=== PATIENT | female | born 1930 | race Caucasian/White ===

== ENCOUNTER 2019-02-11 09:06 | Inpatient (IN) | payer MEDICARE, OTHER ==
[~2019-02-11] VITALS: Ht 167.6 cm; Wt 61.8 kg
[2019-02-11] MEDS ORDERED: ASPI81TA85 PO (09:18)
[2019-02-11] MEDS ORDERED: NS 500 ML IV ONE (09:45)
[2019-02-11] MEDS ORDERED: ACETAMINOPHEN 325 MG TAB PO ONE (09:45)
[2019-02-11] MEDS ORDERED: LIDOCAINE 2% 5ML JELLY UROJET TOP ONE (09:45)
[2019-02-11 10:02] LABS: BASO # 0.1 10^3/uL (0.0-0.2); BASO % 0.4 % (0.0-1.0); EOS # 0.1 10^3/uL (0.0-0.50); EOS % 0.6 % (0.0-3.0); HEMATOCRIT 37.8 % (36.0-47.0); HEMOGLOBIN 12.7 g/dl (12.0-15.5); LYMPH # 0.5 10^3/uL (1.5-4.5); LYMPH % 3.7 % (24.0-44.0); MEAN CORPUSCULAR HEMOGLOBIN 31.1 pg (27.0-33.0); MEAN CORPUSCULAR HGB CONC 33.6 g/dl (32.0-36.5); MEAN CORPUSCULAR VOLUME 92.6 fl (80.0-96.0); MONO # 0.4 10^3/uL (0.0-0.8); MONO % 3.2 % (0.0-5.0); NEUTROPHILS # 11.5 10^3/uL (1.8-7.7); NEUTROPHILS % 91.5 % (36.0-66.0); PLATELET COUNT, AUTOMATED 217 10^3/uL (150-450); RED BLOOD COUNT 4.08 10^6/uL (4.00-5.40); WHITE BLOOD COUNT 12.6 10^3/uL (4.0-10.0)
--- NOTE | 2019-02-11 10:24 | REP ---
CHEST, TWO VIEWS: Two views of the chest is performed. There are no prior studies. There is no acute infiltrate. The heart is normal in size. There is mild calcification of the thoracic aorta. The mediastinal silhouette is unremarkable. There are mild degenerative changes of the spine. IMPRESSION: No acute infiltrate. Electronically Signed by Viet Mazariegos MD 02/12/2019 11:52 A
[2019-02-11 10:43] LABS: ALBUMIN 3.8 GM/DL (3.2-5.2); ALT/SGPT 23 U/L (12-78); BILIRUBIN,DIRECT 0.1 MG/DL (0.0-0.2); BILIRUBIN,TOTAL 0.5 MG/DL (0.2-1.0); BLOOD UREA NITROGEN 20 MG/DL (7-18); CALCIUM LEVEL 9.8 MG/DL (8.8-10.2); CARBON DIOXIDE LEVEL 25 MEQ/L (21-32); CHLORIDE LEVEL 104 MEQ/L (98-107); CREATININE FOR GFR 0.69 MG/DL (0.55-1.30); GLOMERULAR FILTRATION RATE > 60.0 (>32); GLUCOSE, FASTING 164 MG/DL (70-100); POTASSIUM SERUM 4.3 MEQ/L (3.5-5.1); SODIUM LEVEL 139 MEQ/L (136-145); TOTAL PROTEIN 7.4 GM/DL (6.4-8.2)
[2019-02-11 10:53] LABS: INFLUENZA A AMPLIFICATION NEGATIVE (NEGATIVE); INFLUENZA B AMPLIFICATION NEGATIVE (NEGATIVE)
[2019-02-11] MEDS ORDERED: NS 800 ML IV ONE (11:00)
[2019-02-11] MEDS ORDERED: PIPERACILLIN/TAZOBACTAM SOD 4.5 GM in D5W MINI-BAG PLUS 50 ML IV ONE (11:00)
[2019-02-11] MEDS ORDERED: VITMTA PO (11:05)
--- NOTE | 2019-02-11 12:01 | REP ---
CT ABDOMEN AND PELVIS WITHOUT CONTRAST: CT abdomen and pelvis performed without oral or IV contrast. Sagittal and coronal reconstruction images are performed. There are no prior studies for comparison. There are two subcentimeter nodular opacities in the left lower lobe measuring 4 and 6 mm in diameter. Otherwise, the visualized lung bases demonstrate interstitial fibrotic changes. The liver, spleen, adrenals, pancreas and kidneys are grossly unremarkable. No renal or ureteral calculus is seen and there is no evidence of bladder calculus. There is no hydroureteronephrosis. There is moderate atherosclerotic calcification of the abdominal aorta without aneurysm. There is no adenopathy. There is no free air or free fluid. No bowel thickening is seen. I seen no pelvic mass. There are degenerative changes of the spine. There are findings in the left pelvic bones and proximal left femur most consistent with Paget's disease with cortical thickening and coarsening of the trabecular pattern. This also appears to involve the L4 vertebral body. IMPRESSION: No acute abnormality is detected. No renal or ureteral calculus and no hydroureteronephrosis. There are findings compatible with Paget's disease of left pelvic bones, proximal left femur and the L4 vertebral body. Two subcentimeter nodular opacities in the visualized left lung base are of uncertain significance. Recommend CT of the chest to evaluate for other pulmonary nodules. Electronically Signed by Viet Mazariegos MD 02/12/2019 11:56 A
--- NOTE | 2019-02-11 12:12 | HPEPDOC ---
[facility] Medical History & Physical Date of Admission Feb 11, 2019 Date of Service: Feb 11, 2019 Primary Care Physician: A History and Physical CHIEF COMPLAINT: rigors, chills HISTORY OF PRESENT ILLNESS: 88 yo female with no known past medical history, was in her usual state of health last night. This morning she woke up and developed rigors and chills. She does note possibly nocturnal polyuria. She states she has had a lot of stress and has been unable to sleep at night. Recently, one month ago, her daughter from medical issues, and currently has another daughter in hospice. She denies any other medical complaints, denies chest pain, shortness of breath, headaches, n/v/d/, dysuria, changes in vision. She states she has established care with rigoberto phan, and her last visit was about one year ago. prior to that, no medical follow up since 2010, and at that time her medical care was for cataract surgery. PAST MEDICAL HISTORY: 1. Tremors PAST SURGICAL HISTORY: 1. Cataracts - 2010 ALLERGIES: Please see below. REVIEW OF SYSTEMS: Negative except as per HPI. HOME MEDICATIONS: Please see below. PHYSICAL EXAMINATION: VITAL SIGNS: Please see below General: NAD, lying comfortably in bed, elderly HEENT: NC/AT, EOMI, PERRL Lungs: CTA B/L Heart: +S1S2, RRR, systolic murmur Abd: soft, NT, +BS Ext: trace peripheral edema LABORATORY DATA: See below. MICROBIOLOGY: Please see below. ASSESSMENT: 88 yo female for rigors, chills found to have positive urinalysis with +SIRS criteria. #UTI - +SIRS, qSofa=0 - IV zosyn - UCx pending - CT angio abd shows no stones - IV fluids #murmur - echocardiogram pending #pulmonary nodules - noted on CT abd/pelvis - recommend CT chest for further eval - strong family history of throat cancer/lung cancer in her kids - all who were heavy smokers; patient denies ever smoking #DVT prophylaxis - heparin sc #Code Status - discussed advanced directives at bedside with daughter at bedside - patient wishes to be DNR/DNI - MOLST form completed Vital Signs Vital Signs Date Time Temp Pulse Resp B/P (MAP) Pulse Ox O2 Delivery O2 Flow Rate FiO2 02/11/19 11:17 99.6 93 96 02/11/19 11:15 128/64 (85) 02/11/19 09:47 19 Room Air Laboratory Data Labs 24H Laboratory Tests 2 02/11/19 09:40: Immature Granulocyte % (Auto) 0.6, White Blood Count 12.6H, Red Blood Count 4.08, Hemoglobin 12.7, Hematocrit 37.8, Mean Corpuscular Volume 92.6, Mean Corpuscular Hemoglobin 31.1, Mean Corpuscular Hemoglobin Concent 33.6, Red Cell Distribution Width 13.0, Platelet Count 217, Neutrophils (%) (Auto) 91.5H, Lymphocytes (%) (Auto) 3.7L, Monocytes (%) (Auto) 3.2, Eosinophils (%) (Auto) 0.6, Basophils (%) (Auto) 0.4, Neutrophils # (Auto) 11.5H, Lymphocytes # (Auto) 0.5L, Monocytes # (Auto) 0.4, Eosinophils # (Auto) 0.1, Basophils # (Auto) 0.1, Nucleated Red Blood Cells % (auto) 0.0, Anion Gap 10, Glomerular Filtration Rate > 60.0, Lactic Acid Level 2.8*H, Calcium Level 9.8, Aspartate Amino Transf (AST/SGOT) 14, Alanine Aminotransferase (ALT/SGPT) 23, Alkaline Phosphatase 110, Total Bilirubin 0.5, Direct Bilirubin 0.1, Total Protein 7.4, Albumin 3.8, Albumin/Globulin Ratio 1.06, Influenza Type A (RT-PCR) NEGATIVE, Influenza Type B (RT-PCR) NEGATIVE 02/11/19 10:14: Urine Color YELLOW, Urine Appearance CLOUDYH, Urine pH 6.0, Urine Specific [place] 1.013, Urine Protein NEGATIVE, Urine Glucose (UA) NEGATIVE, Urine Ketones NEGATIVE, Urine Blood 2+H, Urine Nitrite POSITIVEH, Urine Bilirubin NEGATIVE, Urine Urobilinogen 0.2, Urine Leukocyte Esterase 3+H, Urine WBC (Auto) TNTCH, Urine RBC (Auto) 80H, Urine Hyaline Casts (Auto) 0, Urine Bacteria (Auto) 1+H, Urine Squamous Epithelial Cells 0, Urine Amorphous Sediment SMALLH, Urine Mucus (Auto) SMALL, Urine Sperm (Auto) CBC/BMP Laboratory Tests 02/11/19 09:40 Red Blood Count 4.08, Mean Corpuscular Volume 92.6, Mean Corpuscular Hemoglobin 31.1, Mean Corpuscular Hemoglobin Concent 33.6, Red Cell Distribution Width 13.0, Neutrophils (%) (Auto) 91.5 H, Lymphocytes (%) (Auto) 3.7 L, Monocytes (%) (Auto) 3.2, Eosinophils (%) (Auto) 0.6, Basophils (%) (Auto) 0.4, Neutrophils # (Auto) 11.5 H, Lymphocytes # (Auto) 0.5 L, Monocytes # (Auto) 0.4, Eosinophils # (Auto) 0.1, Basophils # (Auto) 0.1 Microbiology Microbiology 02/11/19 Blood Culture, Received Pending 02/11/19 Blood Culture, Received Pending 02/11/19 Urine Culture, Received Pending Home Medications Scheduled Aspirin (Aspir 81) 81 Mg Tablet.dr, 81 MG PO DAILY Multivitamins (Thera M Plus Tablet) 1 Each Tablet, 1 TAB PO DAILY Allergies Coded Allergies: No Known Allergies (Unverified , 02/11/19) A-FIB/CHADSVASC A-FIB History Current/History of A-Fib/PAF?: No Current PO Anticoag Therapy: No JANELL VERDE MD Feb 11, 2019 12:12
[2019-02-11] MEDS ORDERED: ACETAMINOPHEN TAB 650MG DOSE (2X325MG) PO PRN (12:15)
[2019-02-11 13:40] VITALS: BP 119/58
--- NOTE | 2019-02-11 15:17 | ECGEPIP ---
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
[2019-02-11] MEDS: NS 1,000 ML IV SCH (15:34)
[2019-02-11] MEDS: PIPERACILLIN/TAZOBACTAM SOD 3.375 GM in D5W MINI-BAG PLUS 50 ML IV SCH ×2 (17:20→22:19)
[2019-02-11] MEDS: HEPARIN SOD (PORCINE) 5000 UNITS/ML VIAL SC SCH (20:44)
[2019-02-11 22:00] VITALS: BP 135/78
[2019-02-12] MEDS: NS 1,000 ML IV SCH ×3 (04:50→20:04)
[2019-02-12] MEDS: PIPERACILLIN/TAZOBACTAM SOD 3.375 GM in D5W MINI-BAG PLUS 50 ML IV SCH ×4 (04:50→22:09)
[2019-02-12 05:59] LABS: HEMATOCRIT 35.9 % (36.0-47.0); HEMOGLOBIN 11.6 g/dl (12.0-15.5); MEAN CORPUSCULAR HEMOGLOBIN 29.8 pg (27.0-33.0); MEAN CORPUSCULAR HGB CONC 32.3 g/dl (32.0-36.5); MEAN CORPUSCULAR VOLUME 92.3 fl (80.0-96.0); PLATELET COUNT, AUTOMATED 203 10^3/uL (150-450); RED BLOOD COUNT 3.89 10^6/uL (4.00-5.40); WHITE BLOOD COUNT 13.6 10^3/uL (4.0-10.0)
[2019-02-12 06:00] VITALS: BP 148/72
[2019-02-12 06:22] LABS: BLOOD UREA NITROGEN 9 MG/DL (7-18); CALCIUM LEVEL 8.3 MG/DL (8.8-10.2); CARBON DIOXIDE LEVEL 26 MEQ/L (21-32); CHLORIDE LEVEL 109 MEQ/L (98-107); CREATININE FOR GFR 0.54 MG/DL (0.55-1.30); GLOMERULAR FILTRATION RATE > 60.0 (>32); GLUCOSE, FASTING 137 MG/DL (70-100); POTASSIUM SERUM 3.9 MEQ/L (3.5-5.1); SODIUM LEVEL 141 MEQ/L (136-145)
--- NOTE | 2019-02-12 07:01 | ECHO ---
DATE OF PROCEDURE: 02/11/2019 DATE OF : 1930 AGE: 88 GENDER: Female HEIGHT: 66 inches WEIGHT: 130 pounds BODY SURFACE AREA: 1.67 meters squared INPATIENT: 4 [place] - Room 4232 REFERRING PHYSICIAN: Dr. John Hargrove INDICATION: Murmur. MEASUREMENTS 2-D Measurements: RV: 2.9 cm LV: 3.8 cm Septum: 1.2 cm Posterior wall: 1.1 cm Aortic root: 2.9 cm LA: 3.9 cm LVEF: 75% Doppler Measurements: AV: 2.0 m/s LVOT: 1.6 m/s LVOT diameter: 2.0 cm MV - E 91 A 72 EA ratio 1.3 E/E prime ratio: 13 PSWP: 17.7 mmHg PV: 0.95 m/s RVSP: 49 mmHg IVC: 2.6 m/s COMMENTS: Normal sinus rhythm without intraventricular conduction disturbance. M-mode and two-dimensional echocardiography was performed with pulsed, continuous wave, color flow and tissue Doppler studies. Borderline concentric left ventricle hypertrophy with hyperkinetic wall motion. Borderline left atrial enlargement with pseudo normal LV inflow tract filling pattern with at least mildly elevated estimated mean left atrial pressure. Normal right heart chamber sizes and wall motion with Doppler evidence of moderate pulmonary hypertension. At least mildly dilated IVC with reduced respiratory collapse in keeping with an elevated central venous pressure. Moderate aortic valvular sclerosis without stenosis, but mild insufficiency (elevated peak systolic velocity is related to hyperdynamic flow, not LV outflow tract obstruction). Normal aortic root size. Mild mitral annular calcification with normal leaflet excursion and no posterior systolic buckling, but mild insufficiency. Normal appearing tricuspid valve with mild-moderate insufficiency. No apparent intracardiac mass or pericardial effusion. MTDD
[2019-02-12] MEDS: HEPARIN SOD (PORCINE) 5000 UNITS/ML VIAL SC SCH ×2 (08:46→20:04)
[2019-02-12 14:00] VITALS: BP 136/67
--- NOTE | 2019-02-12 20:16 | IPNPDOC ---
Subjective Date Seen The patient was seen on 02/12/19. Subjective Chief Complaint/HPI Patient admitted with UTI and SIRS. She states feels better. no back pain, no dysuria, no urgency, no fever/chills. Objective Physical Examination General Exam: Positive: Alert, Cooperative, No Acute Distress Eye Exam: Positive: PERRLA ENT Exam: Positive: Mucous membr. moist/pink Chest Exam: Positive: Clear to auscultation, Normal air movement, Other (no CVA tenderness) Heart Exam: Positive: Rate Normal, Regular Rhythm, Murmurs (soft LI) Abdomen Exam: Positive: Normal bowel sounds, Soft, Other (NT, ND) Skin Exam: Positive: Nl turgor and temperature Neuro Exam: Positive: Normal Speech, Strength at 5/5 X4 ext, Normal Tone, Sensation Intact Psych Exam: Positive: Mental status NL, Mood NL, Oriented x 3 Assessment /Plan Assessment 1) UTI with SIRS - day 2 IV zosyn; urine culture pending, IVF 2) Probable benign heart murmur - echo pending 3) pulmonary nodules - see on CT Abd/Pelv; will need outpatient CT chest for further eval; strong family history of throat cancer/lung cancer in her kids - all who were heavy smokers; patient denies ever smoking Plan/VTE VTE Prophylaxis Ordered?: Yes (sq hep) VS, I&O, 24H, Fishbone Vital Signs/I&O Vital Signs Date Time Temp Pulse Resp B/P (MAP) Pulse Ox O2 Delivery O2 Flow Rate FiO2 02/12/19 14:00 99.3 76 20 136/67 (90) 98 02/11/19 13:17 Room Air I&O- Last 24 Hours up to 6 AM 02/12/19 05:59 Intake Total 3150 ml Output Total 700 ml Balance 2450 ml Laboratory Data 24H LABS Laboratory Tests 2 02/12/19 05:28: Nucleated Red Blood Cells % (auto) 0.0, Anion Gap 6L, Glomerular Filtration Rate > 60.0, Blood Urea Nitrogen 9#, Creatinine 0.54L, Sodium Level 141, Potassium Level 3.9, Chloride Level 109H, Carbon Dioxide Level 26, Calcium Level 8.3#L CBC/BMP Laboratory Tests 02/12/19 05:28 Red Blood Count 3.89 L, Mean Corpuscular Volume 92.3, Mean Corpuscular Hemoglobin 29.8, Mean Corpuscular Hemoglobin Concent 32.3, Red Cell Distribution Width 13.2, Calcium Level 8.3 #L Microbiology Microbiology 02/11/19 Blood Culture - Preliminary, Resulted No growth after 24 hours . All specim... 02/11/19 Blood Culture - Preliminary, Resulted No growth after 24 hours . All specim... 02/11/19 Urine Culture, Received Pending NORAH MORA DO Feb 12, 2019 20:14
[2019-02-12 22:00] VITALS: BP 144/72
[2019-02-13] MEDS: PIPERACILLIN/TAZOBACTAM SOD 3.375 GM in D5W MINI-BAG PLUS 50 ML IV SCH (04:34)
[2019-02-13 06:00] VITALS: BP 133/71
[2019-02-13] MEDS ORDERED: CEPHALEXIN 500 MG CAP PO SCH (06:00)
[2019-02-13 06:12] LABS: HEMOGLOBIN 11.1 g/dl (12.0-15.5); MEAN CORPUSCULAR HEMOGLOBIN 29.9 pg (27.0-33.0); MEAN CORPUSCULAR HGB CONC 32.6 g/dl (32.0-36.5); MEAN CORPUSCULAR VOLUME 91.6 fl (80.0-96.0); PLATELET COUNT, AUTOMATED 187 10^3/uL (150-450); RED BLOOD COUNT 3.71 10^6/uL (4.00-5.40); WHITE BLOOD COUNT 8.8 10^3/uL (4.0-10.0)
[2019-02-13 06:30] LABS: BLOOD UREA NITROGEN 8 MG/DL (7-18); CALCIUM LEVEL 8.8 MG/DL (8.8-10.2); CARBON DIOXIDE LEVEL 26 MEQ/L (21-32); CHLORIDE LEVEL 106 MEQ/L (98-107); CREATININE FOR GFR 0.53 MG/DL (0.55-1.30); GLOMERULAR FILTRATION RATE > 60.0 (>32); GLUCOSE, FASTING 127 MG/DL (70-100); POTASSIUM SERUM 3.5 MEQ/L (3.5-5.1); SODIUM LEVEL 138 MEQ/L (136-145)
[2019-02-13] MEDS ORDERED: ASPIRIN 81 MG ENTERIC TAB PO SCH (09:00)
[2019-02-13] MEDS: HEPARIN SOD (PORCINE) 5000 UNITS/ML VIAL SC SCH (09:15)
--- NOTE | 2019-02-13 09:22 | DS.PDOC ---
Discharge Summary General Date of Admission Feb 11, 2019 at 12:12 Date of Discharge 02/13/19 Attending Physician: NORAH MORA DO Specialist/Consultants [facility] Outside PCP: Paradise Perez [employer] Discharge Summary PROCEDURES PERFORMED DURING STAY: none ADMITTING DIAGNOSES: 1. UTI 2. SIRS 3. heart murmur DISCHARGE DIAGNOSES: 1. E Coli UTI 2. SIRS without sepsis COMPLICATIONS/CHIEF COMPLAINT: UTI. HISTORY OF PRESENT ILLNESS: 88 yo female with no known past medical history, was in her usual state of health last night. This morning she woke up and developed rigors and chills. She does note possibly nocturnal polyuria HOSPITAL COURSE: patient admitted, placed on zosyn and IVF. No signs of sepsis or hypotension. urine culture with E Coli - pansensitive; blood cultures negative. She remained afebrile and leukocytosis improved. Patient had heart murmur, more pronounced with febrile illness and improved when afebrile. Cardiac echo performed as below and no further workup needed. patient is being discharged in stable and improved condition on keflex Cardiac Echo: Normal sinus rhythm without intraventricular conduction disturbance. M-mode and two-dimensional echocardiography was performed with pulsed, continuous wave, color flow and tissue Doppler studies. Borderline concentric left ventricle hypertrophy with hyperkinetic wall motion. Borderline left atrial enlargement with pseudo normal LV inflow tract filling pattern with at least mildly elevated estimated mean left atrial pressure. Normal right heart chamber sizes and wall motion with Doppler evidence of moderate pulmonary hypertension. At least mildly dilated IVC with reduced respiratory collapse in keeping with an elevated central venous pressure. Moderate aortic valvular sclerosis without stenosis, but mild insufficiency (elevated peak systolic velocity is related to hyperdynamic flow, not LV outflow tract obstruction). Normal aortic root size. Mild mitral annular calcification with normal leaflet excursion and no posterior systolic buckling, but mild insufficiency. Normal appearing tricuspid valve with mild-moderate insufficiency. DISCHARGE MEDICATIONS: Please see below. ALLERGIES: Please see below. PHYSICAL EXAMINATION ON DISCHARGE: VITAL SIGNS: Please see below. General: pleasant, NAD, AAOxe HRRR with soft LI LCTA no W/R/R, no CVA tenderness Ext: no edema LABORATORY DATA: Please see below. PROGNOSIS:good ACTIVITY: as tolerated DIET: regualr DISCHARGE PLAN: follow up with pcp in 7-10 days to recheck urine DISPOSITION: home DISCHARGE INSTRUCTIONS: 1. keep active. 2. follow up with PCP in 7-10 days for recheck ITEMS TO FOLLOWUP ON ON OUTPATIENT: 1.none DISCHARGE CONDITION: stable TIME SPENT ON DISCHARGE: 22 minutes. Vital Signs/I&Os Vital Signs Date Time Temp Pulse Resp B/P (MAP) Pulse Ox O2 Delivery O2 Flow Rate FiO2 02/13/19 06:00 97.9 66 17 133/71 (91) 96 02/11/19 13:17 Room Air I&O- Last 24 Hours up to 6 AM 02/13/19 06:00 Intake Total 2750 ml Output Total 900 ml Balance 1850 ml Laboratory Data Labs 24H Laboratory Tests 2 02/13/19 05:35: Nucleated Red Blood Cells % (auto) 0.0, Anion Gap 6L, Glomerular Filtration Rate > 60.0, Blood Urea Nitrogen 8, Creatinine 0.53L, Sodium Level 138, Potassium Level 3.5, Chloride Level 106, Carbon Dioxide Level 26, Calcium Level 8.8 CBC/BMP Laboratory Tests 02/13/19 05:35 Red Blood Count 3.71 L, Mean Corpuscular Volume 91.6, Mean Corpuscular Hemoglobin 29.9, Mean Corpuscular Hemoglobin Concent 32.6, Red Cell Distribution Width 13.2, Calcium Level 8.8 Microbiology Microbiology 02/11/19 Blood Culture - Preliminary, Resulted No growth after 24 hours . All specim... 02/11/19 Blood Culture - Preliminary, Resulted No growth after 24 hours . All specim... 02/11/19 Urine Culture - Final, Complete Escherichia Coli Discharge Medications Scheduled Aspirin (Aspir 81) 81 Mg Tablet.dr, 81 MG PO DAILY, (Reported) Multivitamins (Thera M Plus Tablet) 1 Each Tablet, 1 TAB PO DAILY, (Reported) Allergies Coded Allergies: No Known Allergies (Unverified , 02/11/19) NORAH MORA DO Feb 13, 2019 09:16
[2019-02-13] MEDS ORDERED: CEPH500C PO (09:23)
== END 2019-02-13 11:07 | disposition home or self-care (01) | DRG 690 ==
LOC: M ED 09:06 → EDBD 09:06 → M ED INP 12:12 → M MSPAV 13:48
PROVIDERS: ADMIT Internal Medicine; ATTEND Family Medicine
DX: N39.0 Urinary tract infection, site not specified (principal); B96.29 Other Escherichia coli [E. coli] as the cause of diseases classified elsewhere; Z66 Do not resuscitate; Z76.82 Awaiting organ transplant status; R91.8 Other nonspecific abnormal finding of lung field